=== PATIENT | male | born 1965 | race Caucasian/White ===

== ENCOUNTER 2017-10-13 07:49 | Emergency (ER) | payer OTHER ==
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
[2017-10-13] MEDS ORDERED: ASPIRIN 81 MG CHEW PO ONE (08:30)
[2017-10-13] MEDS ORDERED: LR(*) 1000 ML BAG 1,000 ML IV ONE (08:30)
[2017-10-13] MEDS ORDERED: ALPRAZolam 0.5 MG TAB PO ONE (08:30)
--- NOTE | 2017-10-13 08:34 | EKG ---
FACILITY: [facility] PATIENT NAME: PERLA ERAZO : [id number] MR: [id number] V: [id number] EXAM DATE: ORDERING PHYSICIAN: SADE PITTMAN TECHNOLOGIST: LONI Manjarrez Reason : CARDIAC Blood Pressure : / mmHG Vent. Rate : 113 BPM Atrial Rate : 113 BPM P-R Int : 152 ms QRS Dur : 100 ms QT Int : 312 ms P-R-T Axes : 057 023 048 degrees QTc Int : 427 ms Sinus tachycardia Otherwise normal ECG No previous ECGs available Confirmed by MARYANN GILBERT ([id number]) on 10/14/2017 1:24:13 AM Referred By: KEMAL Confirmed By:MARYANN GILBERT
[2017-10-13 08:42] LABS: PLATELET COUNT, AUTOMATED 266 K/uL (150-450)
--- NOTE | 2017-10-13 09:02 | RADIOLOGY IMAGING REPORT ---
[place] [facility] [place] NAME: Cosmo Villegas : 1965 MR: [id number] V: [id number] EXAM DATE: ORDERING PHYSICIAN: SADE PITTMAN TECHNOLOGIST: Location: [facility] [place] Patient: Cosmo Villegas : 1965 Visit/Account:[id number] Date of Sevice: 10/13/2017 2 VIEWS CHEST INDICATION: Chest pain. COMPARISON: None available FINDINGS: Heart size within normal limits. Multiple circular calcified densities overlie the clemente as well as the pulmonary parenchyma indicative of the sequelae of prior granulomatous disease. No evidence of acute infiltrate, consolidation, eff usion or pneumothorax. Spondylotic changes are seen of the thoracic spine without acute bony finding . Fixation screw is noted from prior right clavicular fracture IMPRESSION: 1. No acute cardiopulmonary process. 2. Evidence of previous granulomatous disease. Report Dictated By: Weston Monroe MD at 10/13/2017 8:57 AM Report E-Signed By: Weston Monroe MD at 10/13/2017 8:58 AM WSN:[id number]
[2017-10-13 10:20] VITALS: BP 136/100
[2017-10-13] MEDS ORDERED: ALPR-429 PO (10:23)
== END 2017-10-13 10:40 | disposition home or self-care (01) ==
LOC: ER 07:49
DX: T70.29XA Other effects of high altitude, initial encounter (principal); F41.9 Anxiety disorder, unspecified
CPT/HCPCS: 71020; 81001; 84484; 85025; 93005; 96360; 99284; J7120; 82040; 82247; 82310; 82374; 82435; 82565; 82947; 84075; 84132; 84155; 84295; 84450; 84460; 84520